=== PATIENT | male | born 1955 | race Caucasian/White ===

== ENCOUNTER → 2023-10-17 13:19 | Outpatient (REF) | payer OTHER, SELFPAY | LOC: MRI 3T 13:19 | PROVIDERS: ATTENDING PHYSICIAN Orthopaedic Surgery; FAMILY PHYSICIAN Family Medicine | DX: M17.12 Unilateral primary osteoarthritis, left knee (principal) | CPT/HCPCS: 73721 ==

== ENCOUNTER → 2024-05-02 10:24 | Outpatient (REF) | payer OTHER, SELFPAY ==
[2024-05-02 11:03] LABS: % Basophils 0.7 % (0-2); % Eosinophils 2.1 % (0-6); % Immature Granulocytes 0.3 % (0-0.5); % Lymphocytes 23.3 % (20.5-51.1); % Neutrophils 65.6 % (42.2-75.2); Absolute Eosinophils 0.1 10^3/uL (0-0.7); Absolute Lymphocytes 1.3 10^3/uL (1.2-3.4); Absolute Monocytes 0.5 10^3/uL (0.1-0.6); Absolute Neutrophils 3.8 10^3/uL (1.4-6.5); Hematocrit 46.8 % (39.0-52.0); Hemoglobin 16.1 g/dL (13.0-18.0); Mean Corp Hgb Conc. 34.4 g/dL (33.0-37.0); Mean Corpuscular Hgb 29.7 pg (27.0-31.0); Mean Corpuscular Volume 86.2 fL (80.0-94.0); Mean Platelet Volume 11.2 fL (7.4-10.4); Nucleated Red Blood Cells % 0 % (-); Platelet Count 151 10^3/uL (130-400); Red Blood Cell Count 5.43 10^6/uL (4.70-6.10); Red Cell Dist. Width 12.6 % (11.5-14.5); White Blood Cell Count 5.7 10^3/uL (4.8-10.8)
[2024-05-02 12:02] LABS: Blood Urea Nitrogen 22 mg/dl (9-20); Calcium 9.1 mg/dl (8.4-10.2); Carbon Dioxide 28 mmol/L (22-30); Chloride 105 mmol/L (98-107); Glucose 95 mg/dl (70-99); Potassium 4.8 mmol/L (3.5-5.1); Sodium 145 mmol/L (135-145); eGFR > 60.00
== END ==
LOC: RCS 10:24
PROVIDERS: ATTENDING PHYSICIAN Orthopaedic Surgery; FAMILY PHYSICIAN Family Medicine
DX: Z01.818 Encounter for other preprocedural examination (principal)
CPT/HCPCS: 36415; 80048; 85025; 93005

== ENCOUNTER → 2024-06-06 11:48 | Outpatient (REF) | payer OTHER, SELFPAY ==
[2024-06-06 15:47] LABS: ALT (SGPT) 24 U/L (0-50); AST (SGOT) 28 U/L (17-59); Albumin 4.7 g/dl (3.5-5.0); Alkaline Phosphatase 72 U/L (38-126); Blood Urea Nitrogen 20 mg/dl (9-20); Calcium 9.1 mg/dl (8.4-10.2); Carbon Dioxide 31 mmol/L (22-30); Chloride 101 mmol/L (98-107); Glucose 81 mg/dl (70-99); HDL Cholesterol 44 mg/dl; LDL Cholesterol, Calculated 127 mg/dl; Sodium 143 mmol/L (135-145); Total Bilirubin 2.3 mg/dl (0.2-1.3); Total Cholesterol 221 mg/dl (50-199); Total Protein 7.4 g/dl (6.3-8.2); Triglyceride 250 mg/dl (10-149); Very Low Density Lipoprotein 50 mg/dl (0-30); eGFR 59.84
[2024-06-06 16:14] LABS: PSA, Total - Screen 6.23 ng/ml (0.0-4.0)
== END ==
LOC: RAD 11:48
PROVIDERS: ATTENDING PHYSICIAN Family Medicine
DX: Z12.5 Encounter for screening for malignant neoplasm of prostate (principal); Z13.220 Encounter for screening for lipoid disorders
CPT/HCPCS: 36415; 80053; 80061; G0103

== ENCOUNTER → 2024-12-30 10:18 | Outpatient (REF) | payer OTHER, SELFPAY | LOC: MRI 3T 10:18 | PROVIDERS: ATTENDING PHYSICIAN Urology; FAMILY PHYSICIAN Family Medicine | DX: R97.20 Elevated prostate specific antigen [PSA] (principal) | CPT/HCPCS: 72197; A9575 ==

== ENCOUNTER → 2025-05-19 13:15 | Outpatient (REF) | payer OTHER, SELFPAY ==
[2025-05-19 13:55] LABS: C-Reactive Protein < 5.00 mg/L (0.0-10.00)
[2025-05-20 18:57] LABS: Lipoprotein a (Lp a) 25 mg/dL (<=29)
== END ==
LOC: REG 13:15
PROVIDERS: ATTENDING PHYSICIAN Ophthalmology; FAMILY PHYSICIAN Family Medicine
DX: H53.2 Diplopia (principal)
CPT/HCPCS: 36415; 83695; 85652; 86140